=== PATIENT | male | born 1995 | race Caucasian/White ===

== ENCOUNTER 2020-07-15 04:45 | Emergency (ER) | payer BC ==
[2020-07-15] MEDS ORDERED: Ondansetron ODT 4 MG TAB ONE (06:33)
[2020-07-15] MEDS ORDERED: Lorazepam 1 MG TAB ONE (06:33)
== END 2020-07-15 07:46 | disposition home or self-care (01) ==
LOC: ERS 04:45
DX: F41.0 Panic disorder [episodic paroxysmal anxiety] (principal)
CPT/HCPCS: 93005; Q0162